=== PATIENT | male | born 1995 | race Caucasian/White ===

== ENCOUNTER 2016-08-21 13:37 | Emergency (ER) | payer OTHER ==
[~2016-08-21] VITALS: Ht 175.3 cm; Wt 63.6 kg
[~2016-08-21 13:37] MED LIST: HYDR-4003 PO; ONDA8TAB10 PO
[2016-08-21 13:44] VITALS: BP 143/81; PULSE 78; RESP 12; O2SAT 99
--- NOTE | 2016-08-21 14:18 | ED.REPORT ---
HPI-Abd Pain M Under 40 Date of Service Aug 21, 2016 ED Provider: Dr. Cedeño Pt is a 20 year old male with a hx of kidney stones presenting to the ED complaining of sharp left flank pain onset this morning around 0900 progressively worsening. He states that this pain feels like his previous kidney stones, but this pain is more severe. Denies nausea, vomiting, fever, chills. The pain radiates downwards toward his genital area. Nursing Notes Stated Complaint: LEFT SIDE PAIN Chief Complaint: Male Abdominal Pain Nursing Notes Reviewed: Yes Allergies: Coded Allergies: metoclopramide HCl (Verified Allergy, Intermediate, muscle spasms, 08/20/15) Scheduled PRN Hydrocodone-Acetaminophen 5-325 mg (Hydrocodone-Acetaminophen 5-325 mg) 1 Each Tablet 1-2 TABLET PO Q4H PRN PRN For Pain Ondansetron ODT (Ondansetron ODT) 8 Mg Tab.rapdis 4-8 MG PO QID PRN PRN For Nausea General Time Seen by MD: 14:18 Chief Complaint Flank pain left Hx Obtained From: Patient Arrived By: Walk-in Sudden in Onset?: Yes Onset Occurred: 5 - 8 hours ago Symptom Duration: Since onset Progression since Onset: Gradually worsening Location: : Flank left Quality: Painful Severity: Current: Pain level 6 out of 10 Severity: Maximum: Severe Recent Healthcare: No recent doctor visit, No recent hospitalization Similar Sx Previous: Yes Past Medical History Past Medical History Kidney stones x18 episodes, likely thought due be due to increased fluid Past Surgical History testicles brought down Smoking History Current Every Day Smoker Social History Alcohol Use: Denies alcohol use Drug Use: Denies drug use Occupation lives with "family" Ambulatory Status Independent Review of Systems Constitutional: Denies: Chills, Fever GI: Denies: Nausea, Vomiting Male: Reports Flank pain Complete sys rev & neg: except as marked. Physical Exam Initial Vital Signs Vital Signs (First) Date Time Temp Pulse Resp B/P Pulse Ox O2 Delivery O2 Flow Rate FiO2 08/21/16 13:44 36.8 78 12 143/81 99 08/21/16 16:45 Room Air Initial VS: Reviewed, Vital signs abnormal Head / Eyes: Atraumatic, Normocephalic, PERRL ENT: Mucous membranes moist, Conjunctiva normal, No scleral icterus Extremities: Vascular intact, Neuro intact, No swelling, No tenderness Skin: Warm, Dry, No cyanosis Neurologic: Alert, Oriented, Nonfocal Psychiatric: Mood/affect normal, Behavior normal, Normal thought content General/Constitutional: Awake, Alert, No acute distress, Well appearing Respiratory / Chest: Breath sounds NL, Breath sounds = bilat, No respiratory distress, No rales, No rhonchi, No wheezing, No stridor Cardiovascular: Heart rate NL, Regular rhythm, Heart sounds NL, Peripheral circulation NL Abdomen: No distention Tenderness/Guarding/Rebound: Positive: Tender flank L Interpretation & Diagnostics Lab Results Interpretation Result Diagram: 08/21/16 1500 08/21/16 1500 Test 08/21/16 14:38 08/21/16 15:00 08/21/16 15:24 Hold Edge Top Tube Received (Received) White Blood Count 5.5th/mm3 (3.8-10.1) Red Blood Count 5.31mil/mm3 (4.40-5.80) Hemoglobin 15.3g/dL (13.8-17.2) Hematocrit 44.5% (41.0-50.0) Mean Corpuscular Volume 83.8fL (81-100) Mean Corpuscular Hemoglobin 28.8pg (27.0-35.0) Mean Corpuscular Hemoglobin Concent 34.4% (32.0-37.0) Red Cell Distribution Width 12.7% (12.3-15.4) Platelet Count 218bil/L (150-400) Neutrophils (%) (Auto) 51.0% (40-74) Lymphocytes (%) (Auto) 39.7% (14-46) Monocytes (%) (Auto) 7.8% (4-12) Eosinophils (%) (Auto) 0.9% (0-5) Basophils (%) (Auto) 0.4% (0-3) Sodium Level 142mEq/L (134-144) Potassium Level 3.9mEq/L (3.5-5.2) Chloride Level 103mEq/L (97-108) Carbon Dioxide Level 24mmol/L (18-29) Blood Urea Nitrogen 12mg/dL (6-20) Creatinine 0.82mg/dL (0.76-1.27) Estimat Glomerular Filtration Rate 127mL/min (>59) Glucose Level 87mg/dL (60-99) Calcium Level 9.6mg/dL (8.5-10.1) Urine Color Yellow (YELLOW) Urine Appearance Clear (CLEAR,HAZY) Urine pH 7.5 (5.0-8.0) Urine Specific [place] 1.020 (1.003-1.035) Urine Protein Negativemg/dL (NEG,TRACE) Urine Glucose (UA) Negativemg/dL (NEGATIVE) Urine Ketones Negativemg/dL (NEGATIVE) Urine Occult Blood Trace (NEGATIVE) Urine Nitrite Negative (NEGATIVE) Urine Bilirubin Negative (NEGATIVE) Urine Urobilinogen Normalmg/dL (NORMAL) Urine Leukocyte Esterase Negative (NEGATIVE) Urine RBC 0-2/hpf (0-2) Urine WBC 0-5/hpf (0-5) Urine Epithelial Cells Few/hpf (NONE-MOD) Urine Crystals None seen (NONE SEEN) Urine Bacteria Few/hpf (NONE-FEW) Urine Hyaline Casts None/lpf (NONE) Urine Granular Casts None seen (NONE SEEN) Urine Waxy Casts None seen (NONE SEEN) Urine Red Blood Cell Casts None seen (NONE SEEN) Urine White Blood Cell Casts None seen (NONE SEEN) Urine Mucus None seen (None Seen) Urine Trichomonas None seen (NONE SEEN) Urine Yeast None (NONE SEEN) Urinalysis Comment Amorphous sediment Urine Culture Reflexed Not indicated CT Abd / Pelvis Interpretation CT KUB: IMPRESSION: Grossly unchanged left renal calculus. No other urolithiasis seen. Interval progression and left pelvicalyceal dilatation raising the possibility of left UPJ stenosis. Dictated by: Jaison Tinoco M.D. on 08/21/2016 at 15:29 Interpretation / Wet Read by: Interpret - Radiologist Re-Eval/Medical Decision Med Decision/Clinical Course The patient presents with left flank pain does not sound exactly like renal colic. Had renal colic in the past and this is similar. Other differential diagnoses considered are pyelonephritis and diverticulitis. CT shows possible ureteral stricture which could not find some of his symptoms. They are not caused by stone. Re-Evaluation/Progress : Time of Eval: 16:20 Patient Status: Condition improved Re-Evaluation/Progress Note: Discussed plan for discharge. Pt understands and agrees with plan. Counseled Regarding: Diagnosis, Lab results, Need for follow-up, When/why to return to ED Patient Discharge & Departure Primary Impression: Left flank pain Disposition: Home Discharge Condition All VS Reviewed: Yes Condition: Improved Patient Instructions: Acute Abdominal Pain (ED) Additional Instructions: You may have a stricture of your ureter. You need to see a urologist. Call on Tuesday to schedule a follow up appointment for next week. You do not have a kidney stone or infection. Seek care if you develop any new or worsening symptoms. Referrals: Tae Mosquera MD (PCP) Lisa Attestation Portions of this note were transcribed by Rosa Montesinos. I, Dr. Cedeño personally performed the history, physical exam and medical decision-making; I reviewed and confirmed the accuracy of the information in the transcribed note. Signed by : Lisa Shirley, 08/21/2016 and 1638. copies to: Tae Mosquera MD, Jena M MD Aug 21, 2016 14:18 ROSA MONTESINOS Aug 21, 2016 14:26
[2016-08-21] MEDS ORDERED: 0.9% Sodium Chloride 1,000 ML IV ONE (15:05)
[2016-08-21] MEDS ORDERED: HYDROmorphone 0.5 mg/0.5 mL iSecure Syringe IVPUSH ONE (15:05)
[2016-08-21 15:23] LABS: BASOPHILS % (AUTO) 0.4 % (0-3); EOSINOPHILS % (AUTO) 0.9 % (0-5); MONOCYTES % (AUTO) 7.8 % (4-12); Mean Corpuscular Hemoglobin 28.8 pg (27.0-35.0); Mean Corpuscular Volume 83.8 fL (81-100); Platelet Count 218 bil/L (150-400)
--- NOTE | 2016-08-21 15:35 | DRSVH ---
PROCEDURE: CT KUB ([id number]) INDICATIONS: left flank pain TECHNIQUE: Noncontrast 5 mm thick sections acquired from the diaphragms to the symphysis. 5 mm thick coronal an d sagittal reformats were then performed. For radiation dose reduction, the following was used: aut omated exposure control, adjustment of mA and/or kV according to patient size. COMPARISON: [facility], CT, CT KUB, 08/20/2015, 20:28. FINDINGS: Image quality: Excellent. Lung bases: Lung bases are clear. Heart size is normal. Urinary system: 5 mm calculus seen in the left kidney on image 17 series 2 appears grossly unchanged. No right-sided nephrolithiasis. There is marked dilatation of the left renal pelvis and mild calycea l dilatation. The left ureter appears relatively decompressed. No bladder calculi seen. Other solid organs: Liver and spleen are normal in size. Gallbladder contracted and therefore unrem arkable. Pancreas is normal in contours. No adrenal nodules. Peritoneum and bowel: Unenhanced bowel loops demonstrate normal wall thickness and caliber. No free fluid or air. Appendix is not well-visualized however no cysts of the right lower quadrant inflamma tory changes. The rectum is decompressed therefore unremarkable Nodes and vessels: No retroperitoneal or mesenteric adenopathy by size criteria. Aorta and inferior vena cava are normal in caliber. Abdominal wall: No ventral hernias. Pelvis: No free pelvic fluid. No inguinal hernias or adenopathy. Bones: No suspicious bony lesions. No vertebral body compression fractures. IMPRESSION: Grossly unchanged left renal calculus. No other urolithiasis seen. Interval progression and left pelvicalyceal dilatation raising the possibility of left UPJ stenosis. Dictated by: Jaison Tinoco M.D. on 08/21/2016 at 15:29 Approved by: Jaison Tinoco M.D. on 08/21/2016 at 15:33
[2016-08-21 15:41] LABS: APPEARANCE,URINE CLEAR (CLEAR,HAZY); COLOR,URINE YELLOW (YELLOW); OCCULT BLOOD,URINE TRACE (NEGATIVE); PH,URINE 7.5 (5.0-8.0); UROBILINOGEN,URINE NORMAL (NORMAL)
[2016-08-21 16:45] VITALS: BP 115/45; PULSE 62; RESP 14; O2SAT 100
== END 2016-08-21 16:47 | disposition home or self-care (01) ==
LOC: SED 13:37
DX: R10.32 Left lower quadrant pain (principal); F17.200 Nicotine dependence, unspecified, uncomplicated; Z88.8 Allergy status to other drugs, medicaments and biological substances
CPT/HCPCS: 74176; 80048; 81000; 85025; 96361; 96374; 96375; 99285; J1170; J7030